=== PATIENT | male | born 2000 | race Caucasian/White ===

== ENCOUNTER 2018-05-02 23:05 | Emergency (ER) | payer SELFPAY ==
[2018-05-02] MEDS ORDERED: methylPREDNISolone 125 MG* 2 ML VIAL IV ONE (23:30)
[2018-05-02] MEDS ORDERED: Famotidine IV* 10 MG/ML 2 ML (20 mg) IV SLOW PU ONE (23:30)
--- NOTE | 2018-05-03 00:39 | ED ---
Allergic Reaction/Systemic - HPI Summary HPI Summary: 17-year-old male presents with allergic reaction today. He states he ate something with nuts in it. He states immediately felt a scratching in his throat. He admits to chest tightness. He developed facial rash and facial swelling. He denies any bowel pain. No nausea vomiting. No tongue swelling. gave self EpiPen and 50mg of Benadryl. He states he feels better now. he admits to minimal chest tightness. No shortness breath. has had similar reaction to nuts in past with a delayed reaction last time that manifested as asthma sx. - History of Current Complaint Chief Complaint: EDAllergicReaction Time Seen by Provider: 05/02/18 23:29 Pain Intensity: 3 - Allergies/Home Medications Allergies/Adverse Reactions: Allergies Allergy/AdvReac Type Severity Reaction Status Date / Time Tree Nuts Allergy Anaphylatic Verified 05/02/18 23:14 Shock PMH/Surg Hx/FS Hx/Imm Hx Endocrine/Hematology History: Denies: Hx Anticoagulant Therapy Cardiovascular History: Denies: Hx Myocardial Infarction Infectious Disease History: No Infectious Disease History: Denies: Traveled Outside the [place] in Last 30 Days - Family History Known Family History: Negative: Respiratory Disease - Social History Alcohol Use: None Substance Use Type: Reports: None Smoking Status (MU): Never Smoked Tobacco Review of Systems Negative: Fever Positive: Chest Pain Positive: Shortness Of Breath - resolved Negative: Abdominal Pain Positive: Rash All Other Systems Reviewed And Are Negative: Yes Physical Exam Triage Information Reviewed: Yes Vital Signs On Initial Exam: Initial Vitals Temp Pulse Resp BP Pulse Ox 99.1 F 107 20 132/95 98 05/02/18 23:05 05/02/18 23:05 05/02/18 23:05 05/02/18 23:05 05/02/18 23:05 Vital Signs Reviewed: Yes Appearance: Positive: Well-Appearing Skin: Positive: Warm, Dry, Other - erythema to neck Head/Face: Positive: Normal Head/Face Inspection Eyes: Positive: Normal, EOMI, BERNARD, Conjunctiva Clear ENT: Positive: Normal ENT inspection, Pharynx normal, TMs normal Respiratory/Lung Sounds: Positive: Clear to Auscultation, Breath Sounds Present Cardiovascular: Positive: Normal, RRR Abdomen Description: Positive: Nontender, Soft Bowel Sounds: Positive: Present Musculoskeletal: Positive: Normal Neurological: Positive: Normal Psychiatric: Positive: Normal Diagnostics - Vital Signs Vital Signs Temp Pulse Resp BP Pulse Ox 05/02/18 23:22 21 125/84 05/02/18 23:05 99.1 F 107 20 132/95 98 - Laboratory Lab Statement: Any lab studies that have been ordered have been reviewed, and results considered in the medical decision making process. Re-Evaluation - Re-Evaluation First Eval Re-Evaluation Time: 00:45 Change: Improved Comment: no sx Allergic Reaction Course/Dx - Course Course Of Treatment: 17-year-old male presents with allergic reaction today. He states he ate something with nuts in it. He states immediately felt a scratching in his throat. He admits to chest tightness. He developed facial rash and facial swelling. He denies any bowel pain. No nausea vomiting. No tongue swelling. gave self EpiPen and 50mg of Benadryl. He states he feels better now. he admits to minimal chest tightness. No shortness breath. has had similar reaction to nuts in past with a delayed reaction last time that manifested as asthma sx. on exam has some erythema of neck. Lungs clear to auscultation. Pharynx normal. Gave steroids and Pepcid and feeling better. We 'll discharge with steroids and Pepcid and epipen. Told to continue Benadryl. Patient understands agrees with plan. - Diagnoses Differential Diagnosis/HQI/PQRI: Positive: Anaphylaxis, Local Allergic Reaction , Urticaria Provider Diagnoses: Anaphylactic reaction Discharge - Sign-Out/Discharge Documenting (check all that apply): Patient Departure - Discharge Plan Condition: Good Disposition: HOME Prescriptions: EPINEPHrine [Epipen] 0.3 mg IJ ONCE #1 auto.injct Famotidine TAB* [Pepcid 20 MG TAB*] 20 mg PO BID #7 tab predniSONE TAB* [Deltasone TAB*] 50 mg PO DAILY #4 tab Patient Education Materials: Food Allergy (ED) Referrals: No Primary Care Phys,NOPCP [Primary Care Provider] - Additional Instructions: Take Benadryl every 6 hours for next 24 hours Take Pepcid twice a day for 4 days Take steroid once a day for 4 days starting tomorrow Return to ED if develop any new or worsening symptoms - Billing Disposition and Condition Condition: GOOD Disposition: Home
[2018-05-03 01:07] VITALS: BP 125/85
== END 2018-05-03 01:06 | disposition home or self-care (01) ==
LOC: ED 23:05
DX: T78.2XXA Anaphylactic shock, unspecified, initial encounter (principal); R07.9 Chest pain, unspecified; R06.02 Shortness of breath; R21 Rash and other nonspecific skin eruption
CPT/HCPCS: 96374; 96375; 99283; J2930